=== PATIENT | female | born 1950 | race Caucasian/White ===

== ENCOUNTER 2019-11-20 10:53 | Observation (INO) ==
[2019-11-20 11:26] LABS: Basophils % 0.3 % (0.1-2.0); Eosinophils % 0.6 % (0.1-12.0); Hematocrit 41.7 % (37.0-47.0); Hemoglobin 13.7 g/dL (12.2-16.2); Lymphocytes # 0.7 K/mm3 (0.7-4.5); Lymphocytes % 10.4 % (10-50); Mean Corpuscular Volume 98.6 fl (81-99); Mean Platelet Volume 8.6 fl (7.4-10.4); Monocytes # 0.2 K/mm3 (0.1-1.0); Monocytes % 3.2 % (1.7-9.3); Neutrophils % 85.6 % (37.0-80.0); Platelet Count 199 K/mm3 (142-424); Red Blood Count 4.23 M/mm3 (4.20-5.40); Red Cell Distribution Width 13.7 % (11.5-17.5)
[2019-11-20 11:38] LABS: Albumin Level 4.2 g/dl (3.5-5.0); Albumin/Globulin Ratio 1.4 (1.1-1.8); Anion Gap 13.5 mEq/L (5-15); Bilirubin,Total 0.6 mg/dl (0.2-1.3); Calcium 9.3 mg/dl (8.4-10.2); Total Protein,Serum 7.2 g/dl (6.3-8.2)
[2019-11-20 11:41] LABS: Lymphocytes % 10 % (10-50); Monocytes % 5 % (2-9); Neutrophils % 82 % (42-76); RBC Morphology Normal; Total Cells Counted 100
--- NOTE | 2019-11-20 11:49 | Emergency Department Note ---
ED Disposition Clinical Impression: Colitis Abdominal pain Qualifiers: Abdominal location: lower abdomen, unspecified Qualified Code(s): R10.30 - Lower abdominal pain, unspecified Disposition: Admitted as Observation Condition on Discharge: Fair Referrals: Kody Riley [Primary Care Provider] - Time of Disposition: 13:03 - Critical Care Critical Care Time: No Attestation: On , the high probability of a clinically significant, sudden or life threatening deterioration of the following system(s) required my full and direct attention, intervention and personal management. The time I documented below is in addition to time spent performing reported procedures but includes the following listed in this critical care notation. Medical Decision Making - Gwyn Inquiry Pt receiving controlled substance: No Vital Signs: 11/20/19 11:03 11/20/19 12:38 Temperature 98.1 F Temperature Source Oral Pulse Rate [Left Radial] 109 H 79 Respiratory Rate 16 16 Blood Pressure [Right Arm] 137/79 117/62 Blood Pressure Mean [Right Arm] 98 80 Blood Pressure Position [Right Arm] Sitting Sitting 02 Sat by Pulse Oximetry 97 97 Oxygen Delivery Method Room Air Room Air - Lab Data Lab results reviewed: Yes: I reviewed the patient's lab results. Lab Results 11/20/19 11:05: WBC 7.0, RBC 4.23, Hgb 13.7, Hct 41.7, MCV 98.6, MCH 32.5 H, MCHC 33.0, RDW 13.7, Plt Count 199, MPV 8.6, Neut % (Auto) 85.6 H, Lymph % (Auto) 10.4, Bailey % (Auto) 3.2, Eos % (Auto) 0.6, Baso % (Auto) 0.3, Neut # (Auto) 6.0, Lymph # (Auto) 0.7, Bailey # (Auto) 0.2, Eos # (Auto) 0.0, Baso # (Auto) 0.0, Total Counted 100, Neutrophils % (Manual) 82 H, Band Neutrophils % 3.0, Lymphocytes % (Manual) 10, Monocytes % (Manual) 5, Platelet Estimate Normal, RBC Morphology Normal 11/20/19 11:23: Sodium 136, Potassium 4.5, Chloride 101, Carbon Dioxide 26, Anion Gap 13.5, BUN 12, Creatinine 0.70, Estimated Creat Clear 57, Estimated GFR 83, Est GFR ( Amer) 101, Glucose 124 H, Calcium 9.3, Total Bilirubin 0.6, AST 31, ALT 19, Alkaline Phosphatase 89, Total Protein 7.2, Albumin 4.2, Globulin 3.0, Albumin/Globulin Ratio 1.4 11/20/19 11:23: Lipase 33 11/20/19 11:55: Stool Occult Blood Positive A Result diagrams: 11/20/19 11:05 11/20/19 11:23 Orders (Tests/Meds): ED MEDICATIONS Discontinued Medications Generic Name Dose Route Start Last Admin Trade Name Freq PRN Reason Stop Dose Admin Sodium Chloride 1,000 mls @ 999 mls/hr 11/20/19 11:30 11/20/19 11:27 Sod Chlor 0.9% 1000ml Bag IV 11/20/19 12:30 999 mls/hr .Q1H1M YOLANDA Administration Ioversol 75 ml 11/20/19 12:13 11/20/19 12:14 Rad-Optiray 350 100ml Vial IV 11/20/19 12:14 75 ml ONCE ONE Administration Protocol Ondansetron HCl 4 mg 11/20/19 11:16 11/20/19 11:27 Zofran 4mg/2ml Vial IV 11/20/19 11:17 4 mg ONCE ONE Administration Sodium Chloride 10 ml 11/20/19 12:13 11/20/19 12:14 Rad-Saline Flush 10ml Syringe IV 11/20/19 12:14 10 ml ONCE ONE Administration ORDERS Category Date Time Status Urinalysis and Microscopic Stat Lab 11/20/19 11:17 Ordered - CT Data CT Scan: Abdomen Time Received: 12:[address] Reviewed: Yes: I have viewed the radiologist's interpretation Findings Narrative: CT ABDOMEN PELVIS W CON CLINICAL INDICATION: abd pain Abdominal pain, rectal bleeding, history of diverticulosis COMPARISON: No exams were available for comparison TECHNIQUE: IV Contrast: 75ML OPTIRAY 350 Oral Contrast none Axial images obtained with sagittal and coronal reformats. All CT scans at the facility use one or more dose reduction, viz: automated exposure control, ma/kV adjustment per patient size (including targeted exams where dose is matched to indication, i.e. head), or iterative reconstruction technique. FINDINGS: LOWER THORAX: There is a 4 mm subpleural nodular opacity in the right lower lobe laterally. A 3-4 mm noncalcified nodules present in the left lower lobe ABDOMEN & PELVIS: Post cholecystectomy. The liver, spleen, adrenal glands, and pancreas have an unremarkable appearance. No renal or ureteral calculi. There is a small cyst along the upper pole of the right kidney at 9 mm. There is diffuse colonic thickening with minimal stranding of the pericolic fat consistent with colitis. This appears to involve the entire colon with the exception of the cecum. No evidence of small-bowel obstruction. No evidence of diverticulitis. No pelvic mass or abnormal fluid collection apparent. No acute bony anomalies IMPRESSION: Findings are compatible with diffuse colitis Dictated by: Riky Darling MD 11/20/2019 12:43 Electronically signed by Riky Darling MD in [place] 11/20/2019 12:43 - Physician Consults Physician Consulted: Dr. Perales Time: 13:00 Reason -: Admission Comment/Response: Discussed with Dr. Perales, regarding the patient and planned to get the patient admitted to the floor. - Reevaluation(s) Time: 12:45 Reevaluation #1: Discussed with the patient regarding the CT scan and the lab findings. Patient denies having any acute pain right now. Plan to admit the patient for diffuse colitis and possible surgical consult for colonoscopy and further evaluation of the colitis. Abdominal Pain HPI - General Chief Complaint: Abdominal Pain Stated Complaint: lower abd pain and bleeding rectum Time Seen by Provider: 11/20/19 11:30 Mode of Arrival: Ambulatory Limitations: No Limitations Description of Symptoms (Recalled from ER Triage Doc. by RN): TO ED PER PVT CAR WITH C/O LOWER ABD PAIN AND RECTAL BLEEDING STARTING THIS AM PT C/O NAUSEA, DENIES ANY FEVER, CHILLS, VOMITING, DIARRHEA. - History of Present Illness HPI narrative: 69-year-old female presents with chief complaint of having lower abdominal pain since about 2 AM this morning. She states the pain started about 6-8 out of 10. Pain was cramping and sharp in nature. There is a still some dull aching type pain throughout. Pain is slightly subsided to about 5-6 out of 10 right now. She noticed that she started having some blood come out on her stool since about 4 AM this morning. She states the first time she wanted to go to the bathroom to have a bowel movement was about 1:00 in the morning. She was not able to have any bowel movements at the time. She started having bowel movements at about 4 and then noticed the blood mixed stool after the same. Now she is having some mild bloody discharge from the rectum. He has history of diverticulosis. She has history of rheumatoid arthritis. She takes steroids on a daily basis. Takes prednisone 2.5 mg on a daily basis. Denies taking any other blood thinners. No history of fever or chills. No history of nausea or vomiting. MD complaint: abdominal pain Onset (ago): hour(s) (10) Consistency: constant Location: suprapubic Severity: moderate Severity scale (1-10): 6 Quality: sharp Radiation: none Migration to: no migration Relieving factors: nothing Exacerbating factors: nothing Associated symptoms: hematochezia - Related Data Allergies Allergy/AdvReac Type Severity Reaction Status Date / Time omeprazole Allergy Verified 11/20/19 11:08 Sulfa (Sulfonamide Allergy Verified 11/20/19 11:08 Antibiotics) [facility] History - Hepatitis A Screen Drug use history?: No High risk sexual behaviors?: No History of sexually transmitted infection?: No Currently employed?: No Childcare worker?: No Do you have indoor plumbing?: Yes Do you have electricity?: Yes Attestation statement:: This patient has been screened for Hepatitis A risk factors. I have reviewed the patient's past medical history: Yes - Social History Alcohol Intake: never Occupational Status: other ROS Obtained: Yes All systems reviewed & no additional complaints Physical Exam - General General appearance: alert, in no apparent distress - Head Head exam: atraumatic, normocephalic, normal inspection - Eye Eye exam: Present: normal appearance, PERRL, EOMI - ENT ENT exam: Present: normal exam, normal oropharynx, mucous membranes moist, normal external ear exam - Neck Neck exam: Present: normal inspection, full ROM, trachea midline - Chest Chest inspection: Present: normal inspection, symmetric chest wall rise. Absent: tenderness - Respiratory Respiratory exam: Present: normal lung sounds bilaterally. Absent: respiratory distress - Cardiovascular Cardiovascular exam: Present: regular rate, normal rhythm. Absent: JVD - Abdominal Exam Abdominal exam: Present: soft, tenderness (Mild tenderness on the suprapubic area.), normal bowel sounds. Absent: distention, guarding - Rectal Exam Rectal exam: Present: normal inspection, normal rectal tone, other (Pinkish and mucousy type stool and discharge on the perirectal area.) - Extremities Exam Extremities exam: Present: normal inspection, full ROM, normal capillary refill - Back Exam Back exam: Present: normal inspection. Absent: tenderness - Neurological Exam Neurological exam: Present: alert, oriented X3, CN II-XII intact - Psychiatric Psychiatric exam: Present: normal affect, normal mood - Skin Skin exam: Present: warm, dry, intact, normal color
--- NOTE | 2019-11-20 14:08 | History & Physical Report ---
*Admission Date: 11/20/19 *Chief complaint: abd pain *History of present illness: 69-year-old female presented to the ER with complaints of abdominal pain,nausea and vomiting since 2 AM. patient states she noticed that she started having some blood come out on her stool since about 4 AM this morning. Now she is having some mild bloody discharge from the rectum. He has history of diverticulosis. She has history of rheumatoid arthritis. She takes steroids on a daily basis. Denies taking any other blood thinners, cardiac or cancer history. Patient reports having some nodules in the lungs that she sees a machine cloth measurer for and they are monitoring. Patient admitted for colitis for IV antibiotics. [facility] History I have reviewed the patient's past medical history: Yes *Have you ever received a pneumonia vaccine?: Yes *Have you received a flu vaccine this season?: Yes - *Social History Alcohol Intake: never *Occupational Status:: other *Travel in the last 8 weeks: None Family Hx:: No significant family history Review of Systems - Review of Systems Review of systems:: pertinent systems reviewed and negative unless documented below - Constitutional Denies body ache(s), Denies fatigue - Eyes Denies blurry vision - ENT Denies post nasal drip - *Cardiovascular Denies chest pain at rest, Denies leg swelling - *Respiratory Denies chest congestion, Denies pain on inspiration - *Gastrointestinal Reports change in stools, Reports bright, red blood in stools, Reports loose s tools, Reports nausea, Reports vomiting - *Genitourinary Denies abnormal vaginal bleeding - *Musculoskeletal Denies decreased muscle mass, Denies body aches - Integumentary/Breasts Denies change in hair, Denies rash - *Neurologic Denies behavioral changes - Psychiatric Denies lack of enjoyment - Endocrine Denies flushing - Hematologic/Lymphatic Denies enlarged lymph nodes - Allergic/Immunologic Denies itchy eyes Meds Home Medications Medication Instructions Recorded Confirmed Type Folic Acid 1 tab PO DAILY 11/20/19 11/20/19 History metHOTREXate sodium [metHOTREXate 6 tab PO WEEKLY 11/20/19 11/20/19 History 2.5mg Tablet] ondansetron HCL [Ondansetron HCl] 4 mg PO Q6 PRN 11/20/19 11/20/19 History predniSONE [Prednisone 5mg 2.5 mg PO DAILY 11/20/19 11/20/19 History Tab] Allergies Allergy/AdvReac Type Severity Reaction Status Date / Time omeprazole Allergy Verified 11/20/19 11:08 Sulfa (Sulfonamide Allergy Verified 11/20/19 11:08 Antibiotics) Exam Vital signs and Labs for Last 24 Hours: Temp Pulse Resp BP Pulse Ox 98.1 F 79 16 117/62 97 11/20/19 11:03 11/20/19 12:38 11/20/19 12:38 11/20/19 12:38 11/20/19 12:38 Laboratory Results - last 24 hr 11/20/19 11:05: WBC 7.0, RBC 4.23, Hgb 13.7, Hct 41.7, MCV 98.6, MCH 32.5 H, MCHC 33.0, RDW 13.7, Plt Count 199, MPV 8.6, Neut % (Auto) 85.6 H, Lymph % (Auto) 10.4, Blount % (Auto) 3.2, Eos % (Auto) 0.6, Baso % (Auto) 0.3, Neut # (Auto) 6.0, Lymph # (Auto) 0.7, Blount # (Auto) 0.2, Eos # (Auto) 0.0, Baso # (Auto) 0.0, Total Counted 100, Neutrophils % (Manual) 82 H, Band Neutrophils % 3.0, Lymphocytes % (Manual) 10, Monocytes % (Manual) 5, Platelet Estimate Normal, RBC Morphology Normal 11/20/19 11:05: ESR 26 11/20/19 11:05: C-Reactive Protein 12.4 H 11/20/19 11:23: Sodium 136, Potassium 4.5, Chloride 101, Carbon Dioxide 26, Anion Gap 13.5, BUN 12, Creatinine 0.70, Estimated Creat Clear 57, Estimated GFR 83, Est GFR ( Amer) 101, Glucose 124 H, Calcium 9.3, Total Bilirubin 0.6, AST 31, ALT 19, Alkaline Phosphatase 89, Total Protein 7.2, Albumin 4.2, Globulin 3.0, Albumin/Globulin Ratio 1.4 11/20/19 11:23: Lipase 33 11/20/19 11:55: Stool Occult Blood Positive A I & O for Last 24 hours: Intake & Output 11/18/19 11/19/19 11/20/19 11/21/19 11:59 11:59 11:59 11:59 Weight 147 lb - Constitutional mild distress - *Routine HEENT Exam Head: Present: normocephalic Eye: Present: PERRL ENT: Present: mucous membranes moist - *Routine Neck Exam Present: supple. Absent: lymphadenopathy - *Routine Respiratory Exam Present: CTA bilaterally - *Routine Cardiovascular Exam Present: RRR - *Routine Abdominal Exam Present: soft, normoactive bowel sounds, tenderness - *Routine Extremities Exam Present: full ROM, normal capillary refill. Absent: cyanosis, clubbing, edema - *Routine Skin Exam Present: warm. Absent: rash - *Routine Neurological Exam Present: alert, oriented X3 - Routine Psychiatric Exam Present: normal affect Assessment and Plan (1) Rheumatoid arthritis Current visit: Yes Status: Acute Qualifiers: Rheumatoid arthritis location: multiple sites Category: Medical Code(s): M06.9 - Rheumatoid arthritis, unspecified (2) Long-term current use of steroids Current visit: Yes Status: Acute Category: Medical (3) Abdominal pain Current visit: Yes Status: Acute Qualifiers: Abdominal location: lower abdomen, unspecified Qualified Code(s): R10.30 - Lower abdominal pain, unspecified Category: Medical Code(s): R10.9 - Unspecified abdominal pain (4) Colitis Current visit: Yes Status: Acute Category: Medical Code(s): K52.9 - Noninfective gastroenteritis and colitis, unspecified - Assessment and plan all Dx Assessment and Plan for all problems:: Dr epstein to round later today all orders per lucian
--- NOTE | 2019-11-20 14:48 | Pharmacy Consult Notes ---
[facility] Pharmacy VTE Monitoring - Patient Demographics Admission date: 11/20/19 Report Date: 11/20/19 Time: 14:47 Allergies/Adverse Reactions: Patient Allergies omeprazole Allergy (Verified 11/20/19 11:08) Sulfa (Sulfonamide Antibiotics) Allergy (Verified 11/20/19 11:08) Height: 1.57 m Weight: 67.585 kg Patient Problems: Current Active Problems Abdominal pain (Acute) Colitis (Acute) Rheumatoid arthritis (Acute) Long-term current use of steroids (Acute) - VTE Risk Labs: VTE Related Lab Results Hgb 13.7 g/dL (12.2-16.2) 11/20/19 11:05 Hct 41.7 % (37.0-47.0) 11/20/19 11:05 Plt Count 199 K/mm3 (142-424) 11/20/19 11:05 BUN 12 mg/dl (7-17) 11/20/19 11:23 Creatinine 0.70 mg/dl (0.52-1.04) 11/20/19 11:23 Estimated Creat Clear 57 mL/min (50-200) 11/20/19 11:23 - Prophylaxis VTE Prophylaxis Ordered?: Yes Types of VTE Prophylaxis: TEDS Knee High Location of Applied Device: Bilateral Lower Extremeties
--- NOTE | 2019-11-20 18:23 | Consult Report ---
*Admission Date: 11/20/19 *Reason for consult:: Colitis *History of present illness: Patient is a very pleasant 69-year-old female. She is normally under the care of Dr. Kody Riley in [facility]. She has a history of rheumatoid arthritis and is on steroids. She was in her usual state of health until approximately 2 AM this morning at which time she developed lower abdominal pain. She then noticed some passage of blood per rectum approximately 2 hours later. Her pain was appreciable and she presented to the emergency department. She underwent work-up including CT scan with intravenous contrast which revealed findings of diffuse colitis involving much of the colon except the cecum. She was admitted for inpatient management. Surgical consultation was ordered by the ER physician, Dr. Olman Lezama for possible colonoscopy and management recommendations. Patient has never had any prior history of similar symptoms. She does feel much better. She had previous colonoscopy in [facility] 7 years ago which revealed diverticulosis and a polyp reportedly. She had a colonoscopy about 18 months ago in [place] by Dr. Daquan Restrepo with similar findings. She was Hemoccult positive. No diarrhea panel is available at this time. Review of Systems - Review of Systems Review of systems:: pertinent systems reviewed and negative unless documented below - *Neurologic Denies behavioral changes [facility] History I have reviewed the patient's past medical history: Yes Medical History: Denies:: Diabetes Mellitus Type 2 *Have you ever received a pneumonia vaccine?: Yes *Have you received a flu vaccine this season?: Yes - *Social History Alcohol Intake: never *Occupational Status:: retired *Travel in the last 8 weeks: None Family Hx:: No significant family history Meds Home Medications Medication Instructions Recorded Confirmed Type Denosumab [Denosumab 60mg/mL 60 mg SQ ONCE 11/20/19 11/20/19 History syringe] Folic Acid 1 tab PO DAILY 11/20/19 11/20/19 History metHOTREXate sodium [metHOTREXate 6 tab PO WEEKLY 11/20/19 11/20/19 History 2.5mg Tablet] ondansetron HCL [Ondansetron HCl] 4 mg PO Q6 PRN 11/20/19 11/20/19 History predniSONE [Prednisone 5mg 2.5 mg PO DAILY 11/20/19 11/20/19 History Tab] Allergies Allergy/AdvReac Type Severity Reaction Status Date / Time omeprazole Allergy Verified 11/20/19 11:08 Sulfa (Sulfonamide Allergy Verified 11/20/19 11:08 Antibiotics) Exam Vital signs and Labs for Last 24 Hours: Temp Pulse Resp BP Pulse Ox 98.0 F 80 18 111/60 97 11/20/19 16:00 11/20/19 16:00 11/20/19 16:00 11/20/19 16:00 11/20/19 16:00 Laboratory Results - last 24 hr 11/20/19 01:40: Lactate 0.8 11/20/19 11:05: WBC 7.0, RBC 4.23, Hgb 13.7, Hct 41.7, MCV 98.6, MCH 32.5 H, MCHC 33.0, RDW 13.7, Plt Count 199, MPV 8.6, Neut % (Auto) 85.6 H, Lymph % (Aut o) 10.4, Martin % (Auto) 3.2, Eos % (Auto) 0.6, Baso % (Auto) 0.3, Neut # (Auto) 6.0, Lymph # (Auto) 0.7, Martin # (Auto) 0.2, Eos # (Auto) 0.0, Baso # (Auto) 0.0, Total Counted 100, Neutrophils % (Manual) 82 H, Band Neutrophils % 3.0, Lymphocytes % (Manual) 10, Monocytes % (Manual) 5, Platelet Estimate Normal, RBC Morphology Normal 11/20/19 11:05: ESR 26 11/20/19 11:05: C-Reactive Protein 12.4 H 11/20/19 11:23: Sodium 136, Potassium 4.5, Chloride 101, Carbon Dioxide 26, Anion Gap 13.5, BUN 12, Creatinine 0.70, Estimated Creat Clear 57, Estimated GFR 83, Est GFR ( Amer) 101, Glucose 124 H, Calcium 9.3, Total Bilirubin 0.6, AST 31, ALT 19, Alkaline Phosphatase 89, Total Protein 7.2, Albumin 4.2, Globulin 3.0, Albumin/Globulin Ratio 1.4 11/20/19 11:23: Lipase 33 11/20/19 11:55: Stool Occult Blood Positive A 11/20/19 15:30: POC Glucose 137 H I & O for Last 24 hours: Intake & Output 0211/19/19 11/20/19 11/21/19 11:59 11:59 11:59 11:59 Intake Total 726 / 726 Output Total 200 / 200 Balance 526 / 526 Weight 147 lb 149 lb - *Routine HEENT Exam Head: Present: normocephalic Eye: Present: EOMI, PERRL ENT: Present: mucous membranes moist - *Routine Neck Exam Present: supple. Absent: lymphadenopathy - *Routine Respiratory Exam Present: CTA bilaterally - *Routine Cardiovascular Exam Present: RRR - *Routine Abdominal Exam Present: soft, normoactive bowel sounds. Absent: tenderness - *Routine Extremities Exam Absent: cyanosis, clubbing, edema - *Routine Skin Exam Present: warm. Absent: rash - *Routine Neurological Exam Present: alert, oriented X3 Results - Labs 11/20/19 11:05 11/20/19 11:23 Laboratory Results - last 24 hr 11/20/19 01:40: Lactate 0.8 11/20/19 11:05: WBC 7.0, RBC 4.23, Hgb 13.7, Hct 41.7, MCV 98.6, MCH 32.5 H, MCHC 33.0, RDW 13.7, Plt Count 199, MPV 8.6, Neut % (Auto) 85.6 H, Lymph % (Auto) 10.4, Martin % (Auto) 3.2, Eos % (Auto) 0.6, Baso % (Auto) 0.3, Neut # (Auto) 6.0, Lymph # (Auto) 0.7, Martin # (Auto) 0.2, Eos # (Auto) 0.0, Baso # (Auto) 0.0, Total Counted 100, Neutrophils % (Manual) 82 H, Band Neutrophils % 3.0, Lymphocytes % (Manual) 10, Monocytes % (Manual) 5, Platelet Estimate Normal , RBC Morphology Normal 11/20/19 11:05: ESR 26 11/20/19 11:05: C-Reactive Protein 12.4 H 11/20/19 11:23: Sodium 136, Potassium 4.5, Chloride 101, Carbon Dioxide 26, Anion Gap 13.5, BUN 12, Creatinine 0.70, Estimated Creat Clear 57, Estimated GFR 83, Est GFR ( Amer) 101, Glucose 124 H, Calcium 9.3, Total Bilirubin 0.6, AST 31, ALT 19, Alkaline Phosphatase 89, Total Protein 7.2, Albumin 4.2, Globulin 3.0, Albumin/Globulin Ratio 1.4 11/20/19 11:23: Lipase 33 11/20/19 11:55: Stool Occult Blood Positive A 11/20/19 15:30: POC Glucose 137 H Assessment and Plan (1) Rheumatoid arthritis Current visit: Yes Status: Acute Qualifiers: Rheumatoid arthritis location: multiple sites Category: Medical Code(s): M06.9 - Rheumatoid arthritis, unspecified (2) Long-term current use of steroids Current visit: Yes Status: Acute Category: Medical (3) Abdominal pain Current visit: Yes Status: Acute Qualifiers: Abdominal location: lower abdomen, unspecified Qualified Code(s): R10.30 - Lower abdominal pain, unspecified Category: Medical Code(s): R10.9 - Unspecified abdominal pain (4) Colitis Current visit: Yes Status: Acute Category: Medical Code(s): K52.9 - Noninfective gastroenteritis and colitis, unspecified - Assessment and plan all Dx Assessment and Plan for all problems:: Send stool for diarrhea PCR panel to evaluate for infectious etiology. Otherwise plan for medical management for colitis of undetermined etiology. No indications for colonoscopy at this time or surgical intervention.
--- NOTE | 2019-11-20 19:08 | Electrocardiograph Report ---
APPROVED REPORT Exam: Resting ECG HR:88 bpm ECG Measurements Heart Rate 88 AXES NC 116 P 61 QRSd 78 QRS 48 QT 362 T78 QTc 438 <Conclusion> Normal sinus rhythm Normal ECG Electronically signed by : Jay Paulson, 11/20/2019 19:07:26
[2019-11-21 05:54] LABS: Eosinophils % 0.3 % (0.1-12.0); Hematocrit 38.8 % (37.0-47.0); Hemoglobin 12.4 g/dL (12.2-16.2); Lymphocytes # 0.5 K/mm3 (0.7-4.5); Lymphocytes % 6.3 % (10-50); Mean Corpuscular HGB Conc 32.1 g/dL (31.8-35.4); Mean Corpuscular Volume 100.7 fl (81-99); Mean Platelet Volume 8.1 fl (7.4-10.4); Monocytes # 0.1 K/mm3 (0.1-1.0); Monocytes % 1.5 % (1.7-9.3); Neutrophils # 7.7 K/mm3 (1.8-7.8); Platelet Count 208 K/mm3 (142-424); Red Blood Count 3.85 M/mm3 (4.20-5.40); Red Cell Distribution Width 13.7 % (11.5-17.5); White Blood Count 8.4 K/mm3 (4.8-10.8)
[2019-11-21 06:09] LABS: Calcium 8.4 mg/dl (8.4-10.2)
[2019-11-21 06:21] LABS: Lymphocytes % 5 % (10-50); Macrocytosis 1+; Monocytes % 1 % (2-9); Neutrophils % 88 % (42-76); Total Cells Counted 100
--- NOTE | 2019-11-21 07:51 | Progress Note ---
Subjective Narrative: Patient feels dramatically better after admission. Has taken some clear liquids. No additional bloody bowel movements or diarrhea. Exam Vital signs and Labs for Last 24 Hours: Temp Pulse Resp BP Pulse Ox 98.0 F 72 16 116/63 94 L 11/21/19 04:00 11/21/19 04:00 11/21/19 04:00 11/21/19 04:00 11/21/19 04:00 Laboratory Results - last 24 hr 11/20/19 01:40: Lactate 0.8 11/20/19 11:05: WBC 7.0, RBC 4.23, Hgb 13.7, Hct 41.7, MCV 98.6, MCH 32.5 H, MCHC 33.0, RDW 13.7, Plt Count 199, MPV 8.6, Neut % (Auto) 85.6 H, Lymph % (Auto) 10.4, [place] % (Auto) 3.2, Eos % (Auto) 0.6, Baso % (Auto) 0.3, Neut # (Auto) 6.0, Lymph # (Auto) 0.7, [place] # (Auto) 0.2, Eos # (Auto) 0.0, Baso # (Auto) 0.0, Total Counted 100, Neutrophils % (Manual) 82 H, Band Neutrophils % 3.0, Lymphocytes % (Manual) 10, Monocytes % (Manual) 5, Platelet Estimate Normal, RBC Morphology Normal 11/20/19 11:05: ESR 26 11/20/19 11:05: C-Reactive Protein 12.4 H 11/20/19 11:23: Sodium 136, Potassium 4.5, Chloride 101, Carbon Dioxide 26, Anion Gap 13.5, BUN 12, Creatinine 0.70, Estimated Creat Clear 57, Estimated GFR 83, Est GFR ( Amer) 101, Glucose 124 H, Calcium 9.3, Total Bilirubin 0.6, AST 31, ALT 19, Alkaline Phosphatase 89, Total Protein 7.2, Albumin 4.2, Globulin 3.0, Albumin/Globulin Ratio 1.4 11/20/19 11:23: Lipase 33 11/20/19 11:55: Stool Occult Blood Positive A 11/20/19 15:30: POC Glucose 137 H 11/21/19 05:30: WBC 8.4, RBC 3.85 L, Hgb 12.4, Hct 38.8, MCV 100.7 H, MCH 32.3 H , MCHC 32.1, RDW 13.7, Plt Count 208, MPV 8.1, Neut % (Auto) 92.0 H, Lymph % (Auto) 6.3 L, [place] % (Auto) 1.5 L, Eos % (Auto) 0.3, Baso % (Auto) 0.0 L, Neut # (Auto) 7.7, Lymph # (Auto) 0.5 L, [place] # (Auto) 0.1, Eos # (Auto) 0.0, Baso # (Auto) 0.0, Total Counted 100, Neutrophils % (Manual) 88 H, Band Neutrophils % 6.0, Lymphocytes % (Manual) 5 L, Monocytes % (Manual) 1 L, Platelet Estimate Normal, Macrocytosis 1+ 11/21/19 05:30: Sodium 139, Potassium 4.0, Chloride 108 H, Carbon Dioxide 23, Anion Gap 12.0, BUN 6 L D, Creatinine 0.60, Estimated Creat Clear 57, Estimated GFR 99, Est GFR ( Amer) 120, Glucose 129 H, Calcium 8.4 I & O for Last 24 hours: Intake & Output 11/18/19 11/19/19 11/20/19 11/21/19 11:59 11:59 11:59 11:59 Intake Total 1961 Output Total 200 / 200 Balance 1761 / 1761 Weight 147 lb 148 lb 8 oz - *Routine Abdominal Exam Present: soft. Absent: tenderness Progress Note: A&P (1) Rheumatoid arthritis Status: Acute Current Visit: Yes (2) Long-term current use of steroids Status: Acute Current Visit: Yes (3) Abdominal pain Status: Acute Current Visit: Yes (4) Colitis Status: Acute Current Visit: Yes Assessment and Plan for All Diagnoses:: If any bowel movement would send stool panel. No additional surgical recommendations at this time. Advanced to a low residue diet.
--- NOTE | 2019-11-21 08:48 | Progress Note ---
Internal Medicine - PN: Subj *Date: 11/22/19 *Time: 06:46 Interval history: doing better with improved appetite Exam Vital signs and Labs for Last 24 Hours: Temp Pulse Resp BP Pulse Ox 98.3 F 84 18 123/68 96 11/21/19 08:00 11/21/19 08:00 11/21/19 08:00 11/21/19 08:00 11/21/19 08:00 Laboratory Results - last 24 hr 11/20/19 01:40: Lactate 0.8 11/20/19 11:05: WBC 7.0, RBC 4.23, Hgb 13.7, Hct 41.7, MCV 98.6, MCH 32.5 H, MCHC 33.0, RDW 13.7, Plt Count 199, MPV 8.6, Neut % (Auto) 85.6 H, Lymph % (Auto) 10.4, [place] % (Auto) 3.2, Eos % (Auto) 0.6, Baso % (Auto) 0.3, Neut # (Auto) 6.0, Lymph # (Auto) 0.7, [place] # (Auto) 0.2, Eos # (Auto) 0.0, Baso # (Auto) 0.0, Total Counted 100, Neutrophils % (Manual) 82 H, Band Neutrophils % 3.0, Lymphocytes % (Manual) 10, Monocytes % (Manual) 5, Platelet Estimate Normal, RBC Morphology Normal 11/20/19 11:05: ESR 26 11/20/19 11:05: C-Reactive Protein 12.4 H 11/20/19 11:23: Sodium 136, Potassium 4.5, Chloride 101, Carbon Dioxide 26, Anion Gap 13.5, BUN 12, Creatinine 0.70, Estimated Creat Clear 57, Estimated GFR 83, Est GFR ( Amer) 101, Glucose 124 H, Calcium 9.3, Total Bilirubin 0.6, AST 31, ALT 19, Alkaline Phosphatase 89, Total Protein 7.2, Albumin 4.2, Globulin 3.0, Albumin/Globulin Ratio 1.4 11/20/19 11:23: Lipase 33 11/20/19 11:55: Stool Occult Blood Positive A 11/20/19 15:30: POC Glucose 137 H 11/21/19 05:30: WBC 8.4, RBC 3.85 L, Hgb 12.4, Hct 38.8, MCV 100.7 H, MCH 32.3 H , MCHC 32.1, RDW 13.7, Plt Count 208, MPV 8.1, Neut % (Auto) 92.0 H, Lymph % (Auto) 6.3 L, [place] % (Auto) 1.5 L, Eos % (Auto) 0.3, Baso % (Auto) 0.0 L, Neut # (Auto) 7.7, Lymph # (Auto) 0.5 L, [place] # (Auto) 0.1, Eos # (Auto) 0.0, Baso # (Auto) 0.0, Total Counted 100, Neutrophils % (Manual) 88 H, Band Neutrophils % 6 .0, Lymphocytes % (Manual) 5 L, Monocytes % (Manual) 1 L, Platelet Estimate Normal, Macrocytosis 1+ 11/21/19 05:30: Sodium 139, Potassium 4.0, Chloride 108 H, Carbon Dioxide 23, Anion Gap 12.0, BUN 6 L D, Creatinine 0.60, Estimated Creat Clear 57, Estimated GFR 99, Est GFR ( Amer) 120, Glucose 129 H, Calcium 8.4 I & O for Last 24 hours: Intake & Output 11/18/19 11/19/19 11/20/19 11/21/19 11:59 11:59 11:59 11:59 Intake Total 1961 / 1961 Output Total 200 / 200 Balance 1761 / 1761 Weight 147 lb 148 lb 8 oz - Constitutional no acute distress - *Routine HEENT Exam Head: Present: normocephalic Eye: Present: EOMI, PERRL ENT: Present: mucous membranes dry - *Routine Neck Exam Present: supple - *Routine Respiratory Exam Present: CTA bilaterally - *Routine Cardiovascular Exam Present: RRR. Absent: murmur - *Routine Abdominal Exam Present: soft, tenderness. Absent: distended, rebound - *Routine Extremities Exam Present: full ROM - *Routine Skin Exam Present: intact - *Routine Neurological Exam Present: alert, oriented X3, CN II-XII intact - Routine Psychiatric Exam Present: normal affect Assessment and Plan (1) Rheumatoid arthritis Current visit: Yes Status: Acute Qualifiers: Rheumatoid arthritis location: multiple sites Category: Medical Code(s): M06.9 - Rheumatoid arthritis, unspecified (2) Long-term current use of steroids Current visit: Yes Status: Acute Category: Medical (3) Abdominal pain Current visit: Yes Status: Acute Qualifiers: Abdominal location: lower abdomen, unspecified Qualified Code(s): R10.30 - Lower abdominal pain, unspecified Category: Medical Code(s): R10.9 - Unspecified abdominal pain (4) Colitis Current visit: Yes Status: Acute Category: Medical Code(s): K52.9 - Noninfective gastroenteritis and colitis, unspecified
--- NOTE | 2019-11-22 07:55 | Progress Note ---
Subjective Narrative: Patient is without complaints. She has had only a minor amount of left lower quadrant tenderness. She has been tolerating a low residue diet. She has not had any additional bowel movements. Exam Vital signs and Labs for Last 24 Hours: Temp Pulse Resp BP Pulse Ox 98.0 F 79 18 130/68 98 11/22/19 03:54 11/22/19 03:54 11/22/19 03:54 11/22/19 03:54 11/22/19 03:54 Laboratory Results - last 24 hr 11/21/19 11:57: POC Glucose 116 H I & O for Last 24 hours: Intake & Output 11/19/19 11/20/19 11/21/19 11/22/19 11:59 11:59 11:59 11:59 Intake Total 2062 / 2062 2826 / 2826 Output Total 900 / 900 2300 / 2300 Balance 1162 / 1162 526 / 526 Weight 147 lb 148 lb 8 oz 149 lb 6 oz - *Routine Abdominal Exam Present: soft Comments: She has some very mild tenderness in the left lower quadrant. Progress Note: A&P (1) Rheumatoid arthritis Status: Acute Current Visit: Yes (2) Long-term current use of steroids Status: Acute Current Visit: Yes (3) Abdominal pain Status: Acute Current Visit: Yes (4) Colitis Status: Acute Assessment and plan: I feel that the patient would warrant an outpatient colonoscopy once the acute colitis has shown some improvement. I discussed the possibility of her undergoing this with Dr. Daquan Restrepo in [place] versus at this institution. At this time she prefers returning here. If so I will see her in the office in a couple weeks to see how she is doing clinically and potentially schedule for a follow-up colonoscopy. Current Visit: Yes
--- NOTE | 2019-11-22 08:35 | Discharge Summary ---
General - General Admission date:: 11/20/19 Discharge date: 11/22/19 HPI HPI: 69-year-old female presented to the ER with complaints of abdominal pain,nausea and vomiting since 2 AM. patient states she noticed that she started having some blood come out on her stool since about 4 AM this morning. Now she is having some mild bloody discharge from the rectum. He has history of diverticulosis. She has history of rheumatoid arthritis. She takes steroids on a daily basis. Denies taking any other blood thinners, cardiac or cancer history. Patient reports having some nodules in the lungs that she sees a hand former for and they are monitoring. Patient admitted for colitis for IV antibiotics. Hospital Course Hospital Course: Laboratory Results - last 24 hr 11/21/19 11:57: POC Glucose 116 H Laboratory Results - last 48 hr 11/20/19 11/20/19 11/20/19 01:40 11:05 11:05 WBC 7.0 RBC 4.23 Hgb 13.7 Hct 41.7 MCV 98.6 MCH 32.5 H MCHC 33.0 RDW 13.7 Plt Count 199 MPV 8.6 Neut % (Auto) 85.6 H Lymph % (Auto) 10.4 [place] % (Auto) 3.2 Eos % (Auto) 0.6 Baso % (Auto) 0.3 Neut # (Auto) 6.0 Lymph # (Auto) 0.7 [place] # (Auto) 0.2 Eos # (Auto) 0.0 Baso # (Auto) 0.0 Total Counted 100 Neutrophils % (Manual) 82 H Band Neutrophils % 3.0 Lymphocytes % (Manual) 10 Monocytes % (Manual) 5 Platelet Estimate Normal RBC Morphology Normal Macrocytosis ESR 26 Sodium Potassium Chloride Carbon Dioxide Anion Gap BUN Creatinine Estimated Creat Clear Estimated GFR Est GFR ( Amer) Glucose POC Glucose Lactate 0.8 Calcium Total Bilirubin AST ALT Alkaline Phosphatase C-Reactive Protein Total Protein Albumin Globulin Albumin/Globulin Ratio Lipase Stool Occult Blood 11/20/19 11/20/19 11/20/19 11:05 11:23 11:23 WBC RBC Hgb Hct MCV MCH MCHC RDW Plt Count MPV Neut % (Auto) Lymph % (Auto) [place] % (Auto) Eos % (Auto) Baso % (Auto) Neut # (Auto) Lymph # (Auto) [place] # (Auto) Eos # (Auto) Baso # (Auto) Total Counted Neutrophils % (Manual) Band Neutrophils % Lymphocytes % (Manual) Monocytes % (Manual) Platelet Estimate RBC Morphology Macrocytosis ESR Sodium 136 Potassium 4.5 Chloride 101 Carbon Dioxide 26 Anion Gap 13.5 BUN 12 Creatinine 0.70 Estimated Creat Clear 57 Estimated GFR 83 Est GFR ( Amer) 101 Glucose 124 H POC Glucose Lactate Calcium 9.3 Total Bilirubin 0.6 AST 31 ALT 19 Alkaline Phosphatase 89 C-Reactive Protein 12.4 H Total Protein 7.2 Albumin 4.2 Globulin 3.0 Albumin/Globulin Ratio 1.4 Lipase 33 Stool Occult Blood 11/20/19 11/20/19 11/21/19 11:55 15:30 05:30 WBC 8.4 RBC 3.85 L Hgb 12.4 Hct 38.8 MCV 100.7 H MCH 32.3 H MCHC 32.1 RDW 13.7 Plt Count 208 MPV 8.1 Neut % (Auto) 92.0 H Lymph % (Auto) 6.3 L [place] % (Auto) 1.5 L Eos % (Auto) 0.3 Baso % (Auto) 0.0 L Neut # (Auto) 7.7 Lymph # (Auto) 0.5 L [place] # (Auto) 0.1 Eos # (Auto) 0.0 Baso # (Auto) 0.0 Total Counted 100 Neutrophils % (Manual) 88 H Band Neutrophils % 6.0 Lymphocytes % (Manual) 5 L Monocytes % (Manual) 1 L Platelet Estimate Normal RBC Morphology Macrocytosis 1+ ESR Sodium Potassium Chloride Carbon Dioxide Anion Gap BUN Creatinine Estimated Creat Clear Estimated GFR Est GFR ( Amer) Glucose POC Glucose 137 H Lactate Calcium Total Bilirubin AST ALT Alkaline Phosphatase C-Reactive Protein Total Protein Albumin Globulin Albumin/Globulin Ratio Lipase Stool Occult Blood Positive A 11/21/19 11/21/19 05:30 11:57 WBC RBC Hgb Hct MCV MCH MCHC RDW Plt Count MPV Neut % (Auto) Lymph % (Auto) [place] % (Auto) Eos % (Auto) Baso % (Auto) Neut # (Auto) Lymph # (Auto) [place] # (Auto) Eos # (Auto) Baso # (Auto) Total Counted Neutrophils % (Manual) Band Neutrophils % Lymphocytes % (Manual) Monocytes % (Manual) Platelet Estimate RBC Morphology Macrocytosis ESR Sodium 139 Potassium 4.0 Chloride 108 H Carbon Dioxide 23 Anion Gap 12.0 BUN 6 L D Creatinine 0.60 Estimated Creat Clear 57 Estimated GFR 99 Est GFR ( Amer) 120 Glucose 129 H POC Glucose 116 H Lactate Calcium 8.4 Total Bilirubin AST ALT Alkaline Phosphatase C-Reactive Protein Total Protein Albumin Globulin Albumin/Globulin Ratio Lipase Stool Occult Blood ct abd/pelvis:IMPRESSION: Findings are compatible with diffuse colitis surgery consult: see note Will discharge home today continue antibiotics and follow-up with Dr. Trejo for an outpatient colonoscopy. Today states she feeling much better and ready to go home. Objective Vital signs: Temp Pulse Resp BP Pulse Ox 98.0 F 79 18 130/68 98 11/22/19 03:54 11/22/19 03:54 11/22/19 03:54 11/22/19 03:54 11/22/19 03:54 no acute distress - *Routine HEENT Exam Head: Present: normocephalic Eye: Present: PERRL ENT: Present: mucous membranes moist - *Routine Neck Exam Present: supple - *Routine Respiratory Exam Present: CTA bilaterally - *Routine Cardiovascular Exam Present: RRR - *Routine Abdominal Exam Present: soft, normoactive bowel sounds. Absent: tenderness - *Routine Extremities Exam Present: full ROM, normal capillary refill. Absent: cyanosis, clubbing, edema - *Routine Skin Exam Present: warm. Absent: rash - *Routine Neurological Exam Present: alert, oriented X3 - Routine Psychiatric Exam Present: normal affect Results Labs on day of discharge: Labs from last 24 hours 11/21/19 11:57 POC Glucose 116 H - Additional Comments Rounded with Dr. Perales all orders per Dr. Perales DS: Diagnosis - Discharge Diagnosis (1) Rheumatoid arthritis Status: Acute (2) Long-term current use of steroids Status: Acute (3) Abdominal pain Status: Acute (4) Colitis Status: Acute Discharge Plan - Patient Discharge Instructions ACTIVITY: Continue current activity DIET: continue same diet Patient Instructions: DI for Colitis - Follow up Plan Follow up with: Drew Trejo MD [Staff Physician] - 1 week Disposition: Home, Self-Prison Medications: Home Medications Medication Instructions Recorded Confirmed Type Denosumab [Denosumab 60mg/mL 60 mg SQ DIRECTED 11/20/19 11/21/19 History syringe] Folic Acid 1 tab PO DAILY 11/20/19 11/20/19 History metHOTREXate sodium [metHOTREXate 6 tab PO FR 11/20/19 11/21/19 History 2.5mg Tablet] ondansetron HCL [Ondansetron HCl] 4 mg PO Q6 PRN 11/20/19 11/20/19 History predniSONE [Prednisone 5mg 2.5 mg PO DAILY 11/20/19 11/20/19 History Tab] levoFLOXacin [Levaquin 750mg 750 mg PO DAILY #5 tab 11/22/19 Rx tablet] metroNIDAZOLE [Flagyl 500mg 500 mg PO TID 5 Days #15 tab 11/22/19 Rx Tablet] Prescriptions/Medication Reconciliation: New metroNIDAZOLE [Flagyl 500mg Tablet] 500 mg PO TID 5 Days #15 tab levoFLOXacin [Levaquin 750mg tablet] 750 mg PO DAILY #5 tab Continued predniSONE [Prednisone 5mg Tab] 2.5 mg PO DAILY Denosumab [Denosumab 60mg/mL syringe] 60 mg SQ DIRECTED ondansetron HCL [Ondansetron HCl] 4 mg PO Q6 PRN PRN Reason: Nausea metHOTREXate sodium [metHOTREXate 2.5mg Tablet] 6 tab PO FR Folic Acid 1 tab PO DAILY - Problem Reconciliation Problems Reviewed?: Yes
== END 2019-11-22 09:34 | disposition home or self-care (01) ==
LOC: 2ND 10:53 → ER 10:53 → 2ND 14:19
PROVIDERS: ADMIT Emergency Medicine; ATTEND Emergency Medicine
CPT/HCPCS: 36415; 74177; 80048; 80053; 82272; 82962; 83605; 83690; 85007; 85025; 85651; 86140; 87040; 93005; 96365; 96366; 96375; 96376; 99284; G0328; G0378; J1956; J2405; Q9967

== ENCOUNTER → 2019-11-25 14:07 | Outpatient (CLI) | payer MEDICARE, SELFPAY ==
[2019-11-25 15:30] LABS: Chloride 105 mmol/L (98-107); Potassium 4.4 mmoL/L (3.5-5.1); Sodium 139 mmol/L (136-145)
[2019-11-25 15:33] LABS: Anion Gap 12.4 mEq/L (5-15); Blood Urea Nitrogen 9 mg/dl (7-17); Calcium 8.9 mg/dl (8.4-10.2); Carbon Dioxide 26 mmol/L (22.0-30.0); Estimated Glomerular Filt Rate 71 ml/min (>60); GFR (African American) 86 ML/MIN (>60); Glucose 83 mg/dl (74-100)
== END ==
PROVIDERS: Visit Provider Nurse Practitioner Family
DX: K52.9 Noninfective gastroenteritis and colitis, unspecified (principal)
CPT/HCPCS: 36415; 80048

== ENCOUNTER → 2020-02-28 10:59 | Outpatient (CLI) | payer MEDICARE, SELFPAY ==
[2020-02-28 13:17] LABS: Coronavirus 19 IgG Antibody Negative (Negative); Coronavirus 19 IgM Antibody Negative (Negative)
== END ==
PROVIDERS: Visit Provider Surgery
DX: Z01.818 Encounter for other preprocedural examination (principal)
CPT/HCPCS: 36415; 86328

== ENCOUNTER 2020-02-29 08:01 | Day surgery (SDC) | payer MEDICARE, SELFPAY ==
--- NOTE | 2020-02-25 08:41 | SUR.PREOP ---
02/25/2020--PHONE CALL MADE TO PATIENT. PATIENT UNDERSTANDS THAT LAB WORK AND COVID TESTING NEEDS TO BE COMPLETED @ 1100 ON 02/28/2020. PATIENT UNDERSTANDS IF LAB WORK AND COVID-19 TESTS ARE NOT COMPLETED BY 12PM ON THAT DATE, THE SURGERY SCHEDULED WILL BE CANCELLED AND RESCHEDULED FOR ANOTHER TIME.
[2020-02-28 14:28] VITALS: BMI 26.9
[2020-02-29 08:49] VITALS: BP 124/71; PULSE 88; RESP 16; TEMP 36.6; O2SAT 99
--- NOTE | 2020-02-29 08:58 | P.PN_ITS ---
[facility] Anesthesia Checklist - Structural Data Admitted From: Home Planned Operative Procedure/s: colonoscopy Consent for Planned Operative Procedure(s) Verified: Yes - Airway Assessment C-Spine Mobility Assessed: Yes TMJ Mobility Assessed: Yes Dentition: Good Dentition - Neurological Assessment Level of Consciousness: Awake, Alert, Appropriate - Anesthesia Plan Anesthesia Risk discussed: Yes Anesthesia Plan: Patient unable to respond/answer ASA Class: II Anesthesia Type: MAC [facility] History I have reviewed the patient's past medical history: Yes Medical History: Reports:: Gastrointestinal Bleed Denies:: Cancer, Diabetes Mellitus Type 1, Diabetes Mellitus Type 2, Internal Pacemaker, MRSA, Seizures *Have you ever received a pneumonia vaccine?: Yes *Have you received a flu vaccine this season?: Yes Anesthesia experience/problems:: none Other Surgeries: Yes: Cholecystectomy, Colonoscopy, Hysterectomy-Partial, Other. No: Pacemaker Amputation: No Fractures: No - *Social History Educational Level: Completed College Smoking Status: Never smoker Alcohol Intake: never Substance Use Type: denies use *Occupational Status:: retired Housing: house Household Members: spouse, family *Travel in the last 8 weeks: None Family Hx:: No significant family history
--- NOTE | 2020-02-29 09:01 | HMH.GSHP ---
HPI HPI: Patient is a very pleasant 69-year-old female normally under the care of Dr. Kody Riley in [place]. She presented to the emergency department in the early interventionist of 11/20/2019 with acute abdominal pain and some rectal bleeding. Her CT scan revealed findings consistent with diffuse colitis. Her symptoms markedly dramatically quickly improved. Patient ultimately was discharged home on oral antibiotic completion of levofloxacin and metronidazole which she completed. She was discharged from the hospital on 11/22/2019. Of note, the patient does have a history of rheumatoid arthritis and is on prednisone, denosumab, methotrexate. She states that her appetite has improved and her bowels are normalizing. Of note, the patient did undergo previous colonoscopy, most recently by Dr. Daquan Restrepo in [place]. The option was discussed with the patient prior to discharge regarding following up for colonoscopy with him versus at this institution and she elected to follow-up here. [facility] History I have reviewed the patient's past medical history: Yes Medical History: Reports:: Gastrointestinal Bleed Denies:: Cancer, Diabetes Mellitus Type 1, Diabetes Mellitus Type 2, Internal Pacemaker, MRSA, Seizures *Have you ever received a pneumonia vaccine?: Yes *Have you received a flu vaccine this season?: Yes Anesthesia experience/problems:: none Other Surgeries: Yes: Cholecystectomy, Colonoscopy, Hysterectomy-Partial, Other. No: Pacemaker Amputation: No Fractures: No - *Social History Educational Level: Completed College Smoking Status: Never smoker Alcohol Intake: never Substance Use Type: denies use *Occupational Status:: retired Housing: house Household Members: spouse, family *Travel in the last 8 weeks: None Family Hx:: No significant family history Review of Systems - Review of Systems Review of systems:: pertinent systems reviewed and negative unless documented below Meds Home Medications Medication Instructions Recorded Confirmed Type Denosumab [Denosumab 60mg/mL 60 mg SQ DIRECTED 11/20/19 02/29/20 History syringe] Folic Acid 1 tab PO DAILY 11/20/19 02/29/20 History metHOTREXate sodium [metHOTREXate 6 tab PO FR 11/20/19 02/29/20 History 2.5mg Tablet] ondansetron HCL [Ondansetron HCl] 4 mg PO Q6 PRN 11/20/19 02/29/20 History predniSONE [Prednisone 5mg 2.5 mg PO DAILY 11/20/19 02/29/20 History Tab] Allergies Allergy/AdvReac Type Severity Reaction Status Date / Time omeprazole Allergy Verified 02/29/20 08:47 Sulfa (Sulfonamide Allergy Verified 02/29/20 08:47 Antibiotics) Exam Vital signs and Labs for Last 24 Hours: Temp Pulse Resp BP Pulse Ox 97.9 F 88 16 124/71 99 02/29/20 08:49 02/29/20 08:49 02/29/20 08:49 02/29/20 08:49 02/29/20 08:49 I & O for Last 24 hours: Intake & Output 02/26/20 02/27/20 02/28/20 02/29/20 11:59 11:59 11:59 11:59 Weight 147 lb - *Routine HEENT Exam Head: Present: normocephalic Eye: Present: EOMI, PERRL ENT: Present: mucous membranes moist - *Routine Neck Exam Present: supple. Absent: lymphadenopathy - *Routine Respiratory Exam Present: CTA bilaterally - *Routine Cardiovascular Exam Present: RRR - *Routine Abdominal Exam Present: soft, normoactive bowel sounds. Absent: tenderness - *Routine Extremities Exam Absent: cyanosis, clubbing, edema - *Routine Skin Exam Present: warm. Absent: rash - *Routine Neurological Exam Present: alert, oriented X3 Assessment and Plan - Assessment and plan all Dx Assessment and Plan for all problems:: Colonoscopy
[2020-02-29 09:14] VITALS: O2SAT 99
[2020-02-29 09:45] VITALS: BP 92/56; PULSE 81; RESP 16; TEMP 36.7; O2SAT 98
--- NOTE | 2020-02-29 09:46 | P.PCN_ITS ---
- Procedure: Date: 02/29/20 Procedure Performed:: Total colonoscopy to terminal ileum with random colon biopsies Indications:: Patient is a very pleasant 69-year-old female. She is normally under the care of Dr. Kody Riley in [facility]. She has a history of rheumatoid arthritis and had been on steroids. Patient had presented to the emergency department at the end of October with abdominal pain and passage of blood per rectum. She then noticed some passage of blood per rectum approximately 2 hours later. Her pain was appreciable and she presented to the emergency department. She underwent work-up including CT scan with intravenous contrast which revealed findings of diffuse colitis involving much of the colon except the cecum. She was admitted for inpatient management. Surgical consultation was ordered by the ER physician, Dr. Olman Lezama for possible colonoscopy and management recommendations. Patient has never had any prior history of similar symptoms. She had previous colonoscopy in [place] approximately 7 years ago which revealed diverticulosis and a polyp reportedly. She had a colonoscopy about 18 months ago in [place] by Dr. Daquan Restrepo with similar findings. She was Hemoccult positive. No diarrhea panel was obtained. Her symptoms quickly r esolved. She was seen in the office as an outpatient and arrangements were made for colonoscopy. This required some delay due to COVID pandemic restrictions. Patient states that she has had no additional symptoms other than one episode shortly after her admission. Performing Provider:: Drew Trejo MD Referring Provider:: Kody Riley MD Sedation:: Propofol Procedure:: Consent was obtained and patient was taken to endoscopy procedure room. She was positioned in a lateral decubitus position. Adequate intravenous sedation was achieved with anesthesia titration of propofol. Variable stiffness Olympus colonoscope was inserted via the anus. Without any significant difficulty it w as advanced to the cecum. Ileocecal valve and appendiceal orifice were clearly identified. Colonoscope was advanced into the terminal ileum which appeared grossly normal. Colonoscope was slowly withdrawn to the colon with careful surveillance. Overall colonic mucosa appeared unremarkable. There was no evidence of any notable polyps, masses, diverticuli, or mucosal lesions. Random colon biopsies were obtained differentiating right and left colon to evaluate for any microscopic colitis. Retroflexion within the rectum revealed internal hemorrhoids which appear to be nonbleeding. Colonoscope was withdrawn. Findings:: Overall relatively unremarkable appearance grossly on colonoscopy Recommendations:: Follow-up on biopsies for microscopic colitis Complications:: None Estimated blood obtained (mL): 3
[2020-02-29 09:55] VITALS: BP 103/67; PULSE 80; RESP 16; O2SAT 99
[2020-02-29 10:05] VITALS: BP 119/72; PULSE 66; RESP 16; O2SAT 99
[2020-02-29 10:15] VITALS: BP 105/72; PULSE 73; RESP 16; O2SAT 99
== END 2020-02-29 10:15 | disposition home or self-care (01) ==
LOC: OUTP 08:02
PROVIDERS: PCP Family Medicine; Visit Provider Surgery
PROC: 0DJD8ZZ Inspection of Lower Intestinal Tract, Via Natural or Artificial Opening Endoscopic (ICD-10-PCS; CPT 45380; principal; 2020-02-29 09:00)
DX: Z09 Encounter for follow-up examination after completed treatment for conditions other than malignant neoplasm (principal); K52.9 Noninfective gastroenteritis and colitis, unspecified; Z86.010 Personal history of colon polyps; Z87.19 Personal history of other diseases of the digestive system; Z79.899 Other long term (current) drug therapy; M06.9 Rheumatoid arthritis, unspecified
CPT/HCPCS: 45380; 88305